=== PATIENT | female | born 1990 | race African-American/Black ===

== ENCOUNTER 2019-07-29 09:23 | Emergency (ER) | payer MEDICAID ==
[~2019-07-29] VITALS: Ht 165.1 cm; Wt 55.0 kg
[2019-07-29] MEDS ORDERED: KETOROLAC 60MG/2ML VIAL IM ONE (10:45)
[2019-07-29 13:07] VITALS: BP 132/76
== END 2019-07-29 13:07 | disposition home or self-care (01) ==
LOC: ER 09:23
DX: S00.81XA Abrasion of other part of head, initial encounter (principal); V00.148A Other scooter (nonmotorized) accident, initial encounter; Y92.488 Other paved roadways as the place of occurrence of the external cause; F14.10 Cocaine abuse, uncomplicated; F12.90 Cannabis use, unspecified, uncomplicated; F15.10 Other stimulant abuse, uncomplicated
CPT/HCPCS: 70486; 72125; 81025; 96372; 99284; J1885